=== PATIENT | male | born 1985 | race Hispanic/Latino ===

== ENCOUNTER 2019-06-10 19:24 | Emergency (ER) | payer OTHER ==
[~2019-06-10] VITALS: Ht 182.9 cm; Wt 136.1 kg
[2019-06-10] MEDS ORDERED: LIDOCAINE HCL 1% LOCAL INJ 20 ML VIAL ONE (19:36)
[2019-06-10] MEDS ORDERED: TETANUS/DIPHTHERIA TOX ADULT 0.5 ML SYR ONE (19:37)
[2019-06-10] MEDS ORDERED: TETANUS/DIPHTHERIA TOX ADULT 0.5 ML SYR IM ONE (19:45)
[2019-06-10] MEDS ORDERED: LIDOCAINE HCL 1% LOCAL INJ 20 ML VIAL INJ ONE (19:45)
[2019-06-10 20:07] VITALS: BP 157/102
[2019-06-10] MEDS ORDERED: AUGMENTIN 500-1 EACH PO (20:07)
--- NOTE | 2019-06-10 20:30 | NUR ---
dr richards aware of patients blood pressure, pt given verbal instruxtions to follow up with primary care doc. pt verbalized understanding
== END 2019-06-10 20:32 | disposition home or self-care (01) ==
LOC: FSED 19:24
DX: S61.012A Laceration without foreign body of left thumb without damage to nail, initial encounter (principal); W26.0XXA Contact with knife, initial encounter; Y92.000 Kitchen of unspecified non-institutional (private) residence as the place of occurrence of the external cause
CPT/HCPCS: 12002; 90471; 90714; 96372; 99283; J2001